=== PATIENT | male | born 1985 | race Two or more races ===

== ENCOUNTER 2019-07-14 01:50 | Emergency (ER) | payer MEDICAID ==
[~2019-07-14] VITALS: Ht 175.3 cm; Wt 90.7 kg
== END 2019-07-14 02:03 ==
LOC: ER 01:53
DX: Z00.00 Encounter for general adult medical examination without abnormal findings (principal); F10.129 Alcohol abuse with intoxication, unspecified; Y90.9 Presence of alcohol in blood, level not specified